=== PATIENT | female | born 1960 | race Caucasian/White ===

== ENCOUNTER 2020-08-23 17:34 | Emergency (ER) | payer OTHER, MEDICAID ==
[~2020-08-23] VITALS: Ht 149.9 cm; Wt 77.1 kg
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
[2020-08-23 17:54] VITALS: BP 132/87
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
[2020-08-23 18:16] LABS: BASOPHILS % (AUTO) 1.2 % (0.0-2.0); EOSINOPHILS % (AUTO) 0.8 % (0.0-3.0); HEMATOCRIT 41.2 % (37.0-47.0); HEMOGLOBIN 13.4 G/DL (12.0-16.0); LYMPHOCYTES % (AUTO) 30.2 % (20.0-45.0); MEAN CORPUSCULAR VOLUME 88 FL (80-99); MONOCYTES % (AUTO) 5.5 % (1.0-10.0); NEUTROPHILS % (AUTO) 62.3 % (45.0-75.0); PLATELET COUNT 239 K/UL (150-450); RED BLOOD COUNT 4.66 M/UL (4.20-5.40); RED CELL DISTRIBUTION WIDTH 12.5 % (11.6-14.8); WHITE BLOOD COUNT 8.1 K/UL (4.8-10.8)
[2020-08-23 18:18] LABS: ANION GAP 8 mmol/L (5-15); BLOOD UREA NITROGEN 21 mg/dL (7-18); CARBON DIOXIDE 30 MMOL/L (21-32); CHLORIDE 106 MMOL/L (98-107); CREATININE 0.8 MG/DL (0.55-1.30); POTASSIUM 3.9 MMOL/L (3.5-5.1); SODIUM 144 MMOL/L (136-145)
[2020-08-23] MEDS ORDERED: XANAX0.5 MG ORAL (18:23)
[2020-08-23] MEDS ORDERED: SERTRALINE HCL50 MG ORAL (18:23)
[2020-08-23] MEDS ORDERED: LOTREL1 CAP PO (18:23)
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
[2020-08-23 18:30] LABS: ALANINE AMINOTRANSFERASE 28 U/L (12-78); ALBUMIN 3.6 G/DL (3.4-5.0); ALBUMIN/GLOBULIN RATIO 0.9 (1.0-2.7); ALKALINE PHOSPHATASE 93 U/L (46-116); ASPARTATE AMINO TRANSFERASE 17 U/L (15-37); BILIRUBIN,TOTAL 0.3 MG/DL (0.2-1.0); CREATINE KINASE 71 U/L (26-308)
--- NOTE | 2020-08-23 19:01 | NUR ---
HAND-OFF: Report given to DOMITILA Polanco. pt is on bedside commode.
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
[2020-08-23 20:10] LABS: APPEARANCE,URINE CLEAR; BILIRUBIN, URINE NEGATIVE (NEGATIVE); COLOR,URINE PALE YELLOW; GLUCOSE, URINE (UA) NEGATIVE (NEGATIVE); KETONES,URINE NEGATIVE (NEGATIVE); LEUKOCYTE ESTERASE ,URINE NEGATIVE (NEGATIVE); NITRITE,URINE NEGATIVE (NEGATIVE); PH,URINE 8 (4.5-8.0); PROTEIN,URINE NEGATIVE (NEGATIVE); UROBILINOGEN,URINE NORMAL MG/DL (0.0-1.0)
--- NOTE | 2020-08-23 20:25 | NUR ---
ED Nurse Note: Pt is resting, no new complaints at this time.
[2020-08-23 20:27] VITALS: BP 143/65
[2020-08-23] MEDS ORDERED: BACITRACIN15 GM TOPIC (22:00)
[2020-08-23] MEDS ORDERED: TYLENOL325 MG ORAL (22:00)
--- NOTE | 2020-08-23 22:20 | NUR ---
ER DISCHARGE NOTE: Patient is cleared to be discharged per ER MD, pt is aaox4, on room air, with stable vital signs. pt was given d/c and prescription instructions, pt was able to verbalize understanding, pt's id band and iv site removed without complications. pt is able to ambulate with steady gait. pt took all belongings.
[2020-08-23 22:21] VITALS: BP 126/69
== END 2020-08-23 22:24 | disposition home or self-care (01) ==
LOC: EDBD 17:34 → EMR 17:46
DX: R53.1 Weakness (principal); F32.9 Major depressive disorder, single episode, unspecified; T76.11XA Adult physical abuse, suspected, initial encounter; S00.31XA Abrasion of nose, initial encounter; S80.211A Abrasion, right knee, initial encounter; S30.1XXA Contusion of abdominal wall, initial encounter; W01.10XA Fall on same level from slipping, tripping and stumbling with subsequent striking against unspecified object, initial encounter; Y93.02 Activity, running; Y92.9 Unspecified place or not applicable
CPT/HCPCS: 36415; 80053; 80307; 81003; 82550; 84443; 85025; 93005; 96360; 99284; G0480